=== PATIENT | female | born 1955 | race Caucasian/White ===

== ENCOUNTER → 2018-02-19 12:53 | Outpatient (CLI) | payer MEDICARE, SELFPAY ==
--- NOTE | 2018-02-19 13:01 | BD_ITS ---
STUDY: DUAL ENERGY X-RAY ABSORPTIOMETRY / DXA REASON FOR EXAM: Female, 63 years old. The patient is postmenopausal. Loss of height. TECHNIQUE: Bone Mineral Density (BMD) measurements of lumbar spine and bilateral hips were obtained. COMPARISON: None. FINDINGS: Lumbar Spine (L1-L4): g/cm2 (0.880) / T-score (-2.4) / Z-score (-0.8) Findings are suggestive of osteopenia with a moderate fracture risk. Left Femur Total: g/cm2 (0.840) / T-score (-1.3) / Z-score (-0.1) Left Femoral Neck: g/cm2 (0.923) / T-score (-0.8) / Z-score (0.6) Right Femur Total: g/cm2 (0.790) / T-score (-1.7) / Z-score (-0.5) Right Femoral Neck: g/cm2 (0.773) / T-score (-1.9) / Z-score (-0.4) BD/Dexa Bone Density Study IMPRESSION: The patient is considered osteopenic as outlined below according to World [employer] Organization (WHO) criteria with a moderate fracture risk. Reference Information: The T-score is the number of standard deviations above or below the standard which is normal for young adults at their peak bone mineral density. The World Health Organization (WHO) interprets the T-scores as follows: Above -1 Normal bone density Between -1 and -2.5 Osteopenia Equal to / or below -2.5 Osteoporosis As a practical clinical guideline, osteopenia may be graded as follows: Mild -1 through -1.5 Moderate -1.6 through -2.0 Severe -2.1 through -2.4 The Z-score is the number of standard deviations above or below age-matched controls. A Z-score of less than -1.5 would be considered abnormal. References: 1. NIH Osteoporosis and Related Bone Diseases http://www.osteo.org 2. International Society for Clinical Densitometry http://www.iscd.org 3. National Osteoporosis Foundation http://www.nof.org Electronically Signed: Gamal Carias MD at 15:38 EDT Tel [phone], Service support ,
== END ==
PROVIDERS: PCP Nurse Practitioner; Visit Provider Nurse Practitioner
DX: Z78.0 Asymptomatic menopausal state (principal)
CPT/HCPCS: 77080

== ENCOUNTER → 2018-04-17 11:13 | Outpatient (CLI) | payer MEDICARE, OTHER, SELFPAY ==
--- NOTE | 2018-04-17 11:17 | RAD_ITS ---
STUDY: X-RAY - PELVIS AND RIGHT HIP REASON FOR EXAM: Female, 63 years old. RT POSTERIOR HIP PAIN UPPER BUTTOCKS DOWN MIDDLE THIGH X MONTHS, THE PAIN MOVES TECHNIQUE: Radiological exam, hip, unilateral, with pelvis when performed; 2 or 3 views. COMPARISON: None. FINDINGS: There is a non-specific bowel gas pattern. Normal visualized soft tissue structures. Normal bilateral iliac wings, sacroiliac joints and visualized sacrum. Normal bilateral superior and inferior pubic rami. Normal pubic symphysis. Normal bilateral ischial tuberosities. There are osteoarthritic changes of the femoral head with marginal osteophyte formation. There is osteoarthritic spur formation of the acetabular rim. There is mild articular joint space narrowing of the hip. RAD/HIP, UNI W/ Pelvis 2-3 Views IMPRESSION: Degenerative findings of the hips. Electronically Signed: Stephen Tao MD at 16:49 EDT , Service support ,
== END ==
PROVIDERS: Family Provider Nurse Practitioner; PCP Nurse Practitioner; Visit Provider Nurse Practitioner
DX: M25.551 Pain in right hip (principal)
CPT/HCPCS: 73502

== ENCOUNTER → 2018-05-22 10:31 | Outpatient (CLI) | payer MEDICARE, OTHER, SELFPAY ==
--- NOTE | 2018-05-22 10:34 | BI_ITS ---
MAMMOGRAPHY - BILATERAL SCREENING REASON FOR EXAM: Female, 63 years old. Routine annual screening examination. PERTINENT HISTORY: Non-contributory. TECHNIQUE: Digital bilateral breast tavo (3D mammographic acquisition) in the CC and MLO projections. 2-D mediolateral oblique (MLO) and craniocaudad (CC) views of both breasts were obtained. CAD: Full Field Digital Mammography with Computer Added Detection was performed. COMPARISON: Comparison is made with prior study dated February 05, 2017 and November 25, 2014. FINDINGS: Breast Composition: The breasts are heterogeneously dense, which may obscure small masses. There are no dominant masses or suspicious calcifications. No other significant abnormalities are identified. There has been no significant change since the prior study. BI/SCREENING MAMM (CAD), BILAT IMPRESSION: Stable bilateral screening mammogram. Yearly follow-up mammogram recommended. (A) ASSESSMENT CATEGORY: BIRADS Category 1: Negative. A letter regarding these results will be sent to the patient by the facility within 30 days. Approximately 10% of breast cancers are not detected by mammography. A normal mammogram should not delay biopsy of a clinically suspicious abnormality. [id number] Electronically Signed: Gamal Carias MD at 14:24 EDT Tel [phone], Service support ,
== END ==
PROVIDERS: Family Provider Nurse Practitioner; PCP Nurse Practitioner; Visit Provider Nurse Practitioner
DX: Z12.31 Encounter for screening mammogram for malignant neoplasm of breast (principal)
CPT/HCPCS: 77063; 77067

== ENCOUNTER → 2018-12-18 | Outpatient (CLI) | payer MEDICARE, OTHER, SELFPAY ==
--- NOTE | 2018-12-18 13:49 | US_ITS ---
STUDY: ULTRASOUND OF THE FEMALE PELVIS - COMPLETE REASON FOR EXAM: Female, 63 years old. Postmenopausal bleeding. LMP: Postmenopausal. TECHNIQUE: Transabdominal and Transvaginal TECHNICAL QUALITY: Adequate. COMPARISON: None. FINDINGS: The uterus is anteverted and is in a midline position. The uterus measures 5.8 cm x 4.1 cm x 3.3 cm. Normal uterine cervix. The endometrium is slightly thickened and measures 3.5 mm in thickness, and is hyperechoic. There is no demonstrated endometrial mass. There is no demonstrated myometrial mass. I.U.D. - The patient does not have an I.U.D. The right ovary is non-visualized. The left ovary is non-visualized. There is no fluid in the cul-de-sac. The pre void volume of the bladder was 129 ml. Polycystic ovary disease: No. US/Pelvic (Non ) IMPRESSION: Mild thickening of the endometrium. Electronically Signed: Gamal Carias, at 15:37 EDT , Service support ,
--- NOTE | 2018-12-18 13:49 | US_ITS ---
STUDY: ULTRASOUND OF THE FEMALE PELVIS - COMPLETE REASON FOR EXAM: Female, 63 years old. Postmenopausal bleeding. LMP: Postmenopausal. TECHNIQUE: Transabdominal and Transvaginal TECHNICAL QUALITY: Adequate. COMPARISON: None. FINDINGS: The uterus is anteverted and is in a midline position. The uterus measures 5.8 cm x 4.1 cm x 3.3 cm. Normal uterine cervix. The endometrium is slightly thickened and measures 3.5 mm in thickness, and is hyperechoic. There is no demonstrated endometrial mass. There is no demonstrated myometrial mass. I.U.D. - The patient does not have an I.U.D. The right ovary is non-visualized. The left ovary is non-visualized. There is no fluid in the cul-de-sac. The pre void volume of the bladder was 129 ml. Polycystic ovary disease: No. US/Transvaginal Non- IMPRESSION: Mild thickening of the endometrium. Electronically Signed: Gamal Carias, at 15:37 EDT , Service support ,
== END | disposition home or self-care (01) ==
LOC: US 13:46
PROVIDERS: Family Provider Nurse Practitioner; PCP Nurse Practitioner; Referring Provider Urology; Visit Provider Urology
DX: N95.0 Postmenopausal bleeding (principal); R31.0 Gross hematuria
CPT/HCPCS: 76830; 76856

== ENCOUNTER → 2019-04-29 | Outpatient (CLI) | payer MEDICARE, OTHER, SELFPAY ==
[2019-02-24 15:46] VITALS: BMI 22.8
--- NOTE | 2019-04-29 10:14 | US_ITS ---
STUDY: RENAL ULTRASOUND - COMPLETE REASON FOR EXAM: Female, 64 years old. Gross hematuria TECHNIQUE: Ultrasound evaluation of the kidneys was performed with real-time and static ruiz-scale imaging. COMPARISON: None. FINDINGS: RIGHT KIDNEY: Normal location of the right kidney, which is normal in size. The right kidney measures 9.9 x 4.3 x 3.3 cm. There is a normal cortex of the right kidney. The renal cortex measures cm. There is no right renal mass or cyst. There are no right renal calculi. There is no right hydronephrosis. DISTAL RIGHT URETER: There is non-visualization of the distal right ureter. There is no demonstrated right ureterovesical junction calculus. There is a visualized right ureteral jet. LEFT KIDNEY: Normal location of the left kidney, which is normal in size. The left kidney measures 10.3 x 4.3 x 6.2 cm. There is a normal cortex of the left kidney. The renal cortex measures 1.5 cm. There is no left renal mass or cyst. There are no left renal calculi. There is no left hydronephrosis. DISTAL LEFT URETER: There is non-visualization of the distal left ureter. There is no demonstrated left ureterovesical junction calculus. There is a visualized left ureteral jet. BLADDER: The distended urinary bladder has a volume of 173.5 ml.. There is a normal wall thickness of the distended urinary bladder. There is no demonstrated mass within the urinary bladder. There are no demonstrated bladder calculi. US/Kidney and Bladder IMPRESSION: Normal ultrasound of the kidneys and urinary bladder. Electronically Signed: Enrico Navarrete MD at 22:26 EDT , Service support ,
== END | disposition home or self-care (01) ==
LOC: US 10:13
PROVIDERS: Family Provider Family Medicine; PCP Family Medicine; Referring Provider Urology; Visit Provider Urology
DX: R31.0 Gross hematuria (principal)
CPT/HCPCS: 76770

== ENCOUNTER → 2019-08-25 10:27 | Outpatient (CLI) | payer MEDICARE, OTHER, SELFPAY ==
[2019-03-20 14:50] VITALS: BMI 22.8
--- NOTE | 2019-08-25 10:30 | BI_ITS ---
MAMMOGRAPHY - BILATERAL SCREENING REASON FOR EXAM: Female, 64 years old. Routine annual screening examination. PERTINENT HISTORY: Non-contributory. TECHNIQUE: Digital bilateral breast brianna (3D mammographic acquisition) in the CC and MLO projections. 2-D mediolateral oblique (MLO) and craniocaudad (CC) views of both breasts were obtained. CAD: Full Field Digital Mammography with Computer Added Detection was performed. COMPARISON: Comparison is made with prior study dated May 22, 2018 and August 08, 2016. FINDINGS: Breast Composition: The breasts are heterogeneously dense, which may obscure small masses. There are no dominant masses or suspicious calcifications. No other significant abnormalities are identified. There has been no significant change since the prior study. BI/SCREEN MAMM (CAD) W/BRIANNA BILAT IMPRESSION: Stable bilateral screening mammogram. Yearly follow-up mammogram recommended. (A) ASSESSMENT CATEGORY: BIRADS Category 1: Negative. A letter regarding these results will be sent to the patient by the facility within 30 days. Approximately 10% of breast cancers are not detected by mammography. A normal mammogram should not delay biopsy of a clinically suspicious abnormality. [id number] Electronically Signed: Gamal Carias, at 12:21 EST , Service support ,
== END ==
PROVIDERS: Family Provider Family Medicine; PCP Family Medicine; Referring Provider Obstetrics & Gynecology; Visit Provider Obstetrics & Gynecology
DX: Z12.31 Encounter for screening mammogram for malignant neoplasm of breast (principal)
CPT/HCPCS: 77063; 77067

== ENCOUNTER 2020-06-01 05:26 | Day surgery (SDC) | payer MEDICARE, OTHER, SELFPAY ==
[2020-01-05 15:18] VITALS: BMI 22.8
--- NOTE | 2020-05-24 13:22 | EKG12_ITS ---
Test Reason : PRE OP Blood Pressure : / mmHG Vent. Rate : 061 BPM Atrial Rate : 061 BPM P-R Int : 174 ms QRS Dur : 084 ms QT Int : 410 ms P-R-T Axes : 064 063 054 degrees QTc Int : 412 ms Normal sinus rhythm Normal ECG Confirmed by JOSE M LAUGHLIN, TEO ([id number]), newspaper photo editor DAVID RICE ([id number]) on 05/25/2020 9:14:01 AM Referred By: Cherri Trevino Confirmed By:TEO SALGUERO MD
[2020-05-24 13:35] LABS: Hemoglobin 12.4 g/dL (12.0-15.0); Mean Corpuscular Hgb 27.3 pg (27.0-32.0); Mean Corpuscular Volume 88.1 fL (81-99); Mean Platelet Vol. 9.4 fl (6.2-12.0); Platelet Count 259 K/mm3 (150-450); RBC Distribution Width CV 13.9 % (11.6-14.6); RBC Distribution Width SD 45.2 fl (35.1-43.9); Red Blood Count 4.54 M/mm3 (4.2-5.4); White Blood Count 5.9 K/mm3 (4.4-11.0)
[2020-05-24 14:01] VITALS: BMI 22.8
[2020-05-24 14:13] LABS: Magnesium 1.8 mg/dL (1.6-2.6); Thyroid Stim Hormone (TSH) 1.45 uIU/mL (0.358-3.74)
[2020-06-01] VITALS (14 sets, daily range): BP systolic 105–151; BP diastolic 61–86; PULSE 61–81; RESP 14–18; TEMP 36–37.2; O2SAT 95–100; BMI 23.1
[2020-06-01] MEDS: Lactated Ringers 1,000 ML 40 ML IV (06:22)
[2020-06-01] MEDS: Acetaminophen 500 MG Tablet 1000 MG PO ×3 (06:34→23:51)
[2020-06-01] MEDS: Celecoxib 200 MG Capsule 400 MG PO (06:35)
[2020-06-01] MEDS: dexAMETHasone 10 MG/ML Vial 8 MG IV (06:36)
[2020-06-01] MEDS: Scopolamine 1mg/72hr Patch 1 PATCH TRANSDERM. (06:36)
[2020-06-01] MEDS: Enoxaparin 40 MG/0.4 ML Syringe SC (06:36)
[2020-06-01] MEDS: Gabapentin 600 MG Tablet PO (06:36)
[2020-06-01] MEDS: Estrogens,Conj. 1 Tube 1 DOSE (07:04)
[2020-06-01 07:06] LABS: Bedside Glucose 100 mg/dL (70-110)
--- NOTE | 2020-06-01 07:29 | OP.PCM_ITS ---
Problem List (1) Pessary maintenance Status: Acute Comment: size 2 cube, failed ring with support, gellhorn, and doughnut. plan monthly removal in office prior to surgery (2) Incomplete uterovaginal prolapse Status: Acute Comment: grade III cytocele/rectocele. recommend TVH BS combo case with urogyn. s/p urogyn evaluation. patient prefers SDS Report of Operation Date of Procedure: 06/01/20 Pre-Operative Diagnosis: pelvic organ prolapse Surgery/Procedure Performed:: tvh Description of Surgical Findings:: nl uterus tubes ovaries [employer] scout: Jenna Espinal Type of Anesthesia:: General Specimen's removed: uterus Drains: [place] Estimated Blood Loss (mL): 50 Fluids Replaced: crystalloid Description of Procedure: Patient was taken to the operating room and was placed under general anesthesia was prepped and draped in normal sterile fashion in the dorsal lithotomy position. Preoperative antibiotics and SCDs and [place] catheter was placed inside the bladder. Weighted speculum was placed in the vagina and the anterior and posterior lip of the cervix was grasped with 2 Nasir clamps and circumferentially injected with dilute vasopressin. A circumferential incision was made with a scalpel and the posterior cul-de-sac was entered into sharply and a longneck speculum was placed. The anterior cul-de-sac was also dissected down and entered into sharply and the uterosacral ligaments were clamped cut and suture ligated bilaterally followed by the cardinal ligaments which were Clamped cut and suture ligated bilaterally with 0 Monocryl. The uterus serially descended and progressive bites were taken bilaterally up to the level of the utero-ovarian ligament bilaterally which was clamped transected and double ligated with 0 Monocryl suture and 0 Vicryl free tie. Bilateral fallopian tubes and ovaries were well visualized and noted be within normal limits. Significantly lateral and superior to the immediate visual operative field. Risk of removal due to inadequate exposure through vaginal access,, the decision to abort bilateral oophorectomy and salpingectomy was made. Patient had been consented preoperatively about this possibility and agreed. Excellent hemostasis was noted. Posterior peritoneum and the vagina were closed with [id number] 0 Vicryl pop offs including the posterior and anterior peritoneum in the reapproximation. Excellent hemostasis was noted. All instruments removed from the vagina clear urine was noted at the end of the procedure and see dr sargent's note for additional operative info. Grafts/Implants Used: none - Complications none - Admit VTE Documentation VTE Present on Admission: No VTE Mechan Device Prophylaxis: SCD's Multi Select Codes - Urinary/Genital Urinary/Genital CPT Codes: 39438 TVH <250 gr uterus
--- NOTE | 2020-06-01 07:29 | PCM.HPOB.BLA ---
- Problem List (1) Pessary maintenance Status: Acute Comment: size 2 cube, failed ring with support, gellhorn, and doughnut. plan monthly removal in office prior to surgery (2) Incomplete uterovaginal prolapse Status: Acute Comment: grade III cytocele/rectocele. recommend TVH BS combo case with urogyn. s/p urogyn evaluation. patient prefers SDS History and Physical Date of Admission: 06/01/20 Intake Vital Signs 05/24/20 Height 5 ft 3 in 05/24/20 Weight: 129 lb 5 oz 05/24/20 BMI 22.8 05/24/20 BP 112/80 Intake Visit Reasons: pre op Chief Complaint: pre op TVH BSO rosetta espinoo General [employer] Required: No Is patient in pain?: No Allergies amoxicillin Allergy (Verified 05/24/20 14:02) Hives Penicillins Adverse Reaction (Unknown, Verified 05/24/20 14:02) unknown codeine Adverse Reaction (Verified 05/24/20 14:02) Vomiting Medications zolpidem 5 mg tablet 5 mg PO QHS PRN 12/12/18 [History Confirmed 05/24/20] prasterone (dhea) 25 mg capsule 25 mg PO DAILY 12/24/19 [History Confirmed 05/24/20] progesterone micronized 100 mg capsule 100 mg PO QAM 12/24/19 [History Confirmed 05/24/20] C-Estriol 1 mg VAGINAL .2TIMESWEEELY 05/24/20 [History Confirmed 05/24/20] Calcium Carbonate/Vitamin D3 [Calcium 250+D Tablet] 1 ea PO DAILY 05/24/20 [History Confirmed 05/24/20] Cholecalciferol (VIT D3) [Vitamin D] 1,000 unit PO DAILY 05/24/20 [History Confirmed 05/24/20] Selenium 100 mcg PO DAILY 05/24/20 [History Confirmed 05/24/20] Testosterone 2 gm TD DAILY 05/24/20 [History Confirmed 05/24/20] Thyroid,Pork [Nature-Throid] 30 mg PO DAILY 05/24/20 [History Confirmed 05/24/20] Vitamin B Complex 1 ea PO DAILY 05/24/20 [History Confirmed 05/24/20] Zinc 50 mg PO DAILY 05/24/20 [History Confirmed 05/24/20] multivitamin,[id number]-[id number] 1 tab PO DAILY 05/24/20 [History] Is last menstrual period known: No Post menopausal: Yes Patient : No : No PFSH Medical History Adrenal disorder (Acute) Anemia (Acute) Anxiety (Acute) Hormone deficiency (Acute) Hypercholesteremia (Acute) Nasal tumor (Acute) Osteoarthritis (Acute) Osteopenia (Acute) Seasonal affective disorder (Acute) Skin cancer (Acute) Vitamin D deficiency (Acute) Surgical History History of ankle surgery (Acute) Family History Mother Lung cancer Heart disease Father Bone cancer Brother Throat cancer Daughter HORMONE PROBLEMS Social History (Updated 05/24/20 @ 14:[address] 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 she is having a vaginal hysterectomy combo case with pelvic reconstruction. Female Reproductive History Menopausal Symptoms: No hot flashes, No night sweats, No difficulty concentrating, No change in libido Pregancy History 2 Elective abortions Hx Para 2 Spontaneous abortions Hx # Term Pregnancies Ectopic pregnancies Hx # Pregnancies Multiple births # of living children 2 Past Pregnancies Del. Date Name GA/Weeks Outcome Route Bth Weight Gen Labor Lgth Anesthesia Del Locatn Provider FOB Unknown 1978 Col[facility] live - full term Unknown 1998 Mirela live - full term ROS Const Constitutional: Denies fatigue, fever(s), headache(s), increased appetite, poor appetite, night sweats, weight gain or weight loss Cardio Card: Denies chest pain Resp Resp: Denies cough or dyspnea GI GI: Reports as per HPI; denies abdominal pain, constipation, nausea or vomiting : Reports as per HPI; denies difficulty urinating, painful urination, hot flashes, nipple discharge, urinary frequency, urinary incontinence, urinary hesitancy, urinary urgency, vaginal discharge, vaginal dryness, vaginal odor or vaginal itching Skin Skin/Breast: Denies change in hair, breast lump, breast pain, breast skin changes or nipple discharge Psych Psych: Denies change in sex drive or difficulty concentrating Exam Const General: cooperative, healthy appearing, comfortable, no acute distress, well developed Nutritional Appearance: average body habitus Orientation: alert HENMT Head: normal to inspection, normocephalic Neck Neck: normal visual inspection, trachea midline Thyroid: thyroid normal Resp Effort & Inspection: normal respiratory effort GI Inspection: normal to inspection, non-distended Palpation: soft, no hepatosplenomegaly General: bladder normal to palpation External Female Exam: normal external appearance, normal appearance of the urethra Urethra: normal appearance of the urethra Speculum Exam - Vagina: normal appearance of the vagina, normal vaginal discharge Speculum Exam - Cervix: normal appearance of the cervix, nontender Bimanual Exam- Vagina & Uterus: bladder normal to palpation, No cervical tenderness Bimanual Exam- Adnexa, other: normal adnexae, adnexae mobile, no adnexal masses, rectocele, cystocele, vaginal apex descent Pelvic Support: cystocele, rectocele, vaginal apex descent Skin General: no rashes or lesions noted Assessment & Plan Problems 1. Incomplete uterovaginal prolapse N81.2 grade III cytocele/rectocele. recommend TVH BS combo case with urogyn. s/p urogyn evaluation. patient prefers SDS 2. Pessary maintenance Z46.89 size 2 cube, failed ring with support, gellhorn, and doughnut. plan monthly removal in office prior to surgery Plan After discussing the patient's diagnosis and treatment plan options, patient wishes to proceed with surgical management. I have discussed with the patient the risks, benefits, and alternatives of the procedure which include but are not limited to risks of anesthesia, bleeding, infection, possible damage to bowel, bladder, or surrounding vasculature which could lead to additional surgery to evaluate any complications. Patient agrees to procedure and wishes to proceed. ACOG/uptodate references given for additional information regarding procedure. Coding Level of Care Code No Charge Diagnoses Incomplete uterovaginal prolapse N81.2 Pessary maintenance Z46.89 UPDATE- I have seen the patient and performed any clinically relevant updates to the history and physical exam. Cherri Trevino MD
--- NOTE | 2020-06-01 07:30 | HYST_PTH ---
PATIENT: AHMET SHANE LOC: [facility] [place] U#:[id number] AGE/SX: 65/F ROOM: RE06/01/[address]: Dr. Cherri Trevino MD : 1955 BED: DIS: 06/02/2020 SPEC #: [id number] RECD: 06/01/20 12:19 STATUS: CHAIM REDarin #: [id number] KOLBY: 06/01/20 07:[address]: Cherri Trevino DEPT: SURGICAL PATHOLOGY RECD BY: Bakari Cruz ENTERED: 06/01/20 12:28 SP TYPE: HYSTERECT OTHR DR: MD Dr. Celina Hightower III, MD Tissues: Uterus, NOS Procedures: Surgery Specimen Level V HEADER OPERATION: ERAS, vaginal hysterectomy PRE-OP DIAGNOSIS: Incomplete uterovaginal prolapse; cystocele/rectocele TISSUE SUBMITTED: Uterus MICROSCOPIC DIAGNOSIS Uterus, hysterectomy: Cervix - squamous metaplasia, nabothian cyst and chronic inflammation. Endometrium - weakly proliferative endometrium with focal cystic change. Myometrium - focal superficial adenomyosis. AM:robert 06/02/20 MICROSCOPIC DESCRIPTION Slides are reviewed. GROSS DESCRIPTION Received in fixative is one container labeled with the patient's name and designated uterus. The specimen consists of a hysterectomy specimen consisting of uterus with cervix weighing 56 gm and measuring 7 x 5 x 3 cm. The serosal surface is zepeda, glistening. The ectocervical mucosa is unremarkable. The external os is slit-like in contour. The endocervical canal measures 2.5 cm in length and the endocervical mucosa is zepeda, glistening and unremarkable. The triangular endometrial cavity measures 3.5 cm in length and 2.5 cm in width. The endometrium is zepeda, glistening without any mass lesion and measures <01 cm in thickness. Sections of the uterine wall do not reveal any mass lesion and measures 1.5 cm in thickness. [employer]in[employer] sections are submitted in six cassettes as follows: 1??anterior cervix, 2 - posterior cervix, 3 & 4 - anterior uterine wall, 5 & 6 - posterior uterine wall. / MECHE:robert 06/01/20 TC:5 CPT: 71850
--- NOTE | 2020-06-01 08:13 | OP.PCM_ITS ---
Problem List (1) Incomplete uterovaginal prolapse Status: Acute Comment: grade III cytocele/rectocele. recommend TVH BS combo case with urogyn. s/p urogyn evaluation. patient prefers SDS Report of Operation Date of Procedure: 06/01/20 Pre-Operative Diagnosis: incomplete uterovaginal prolapse Post-Operative Diagnosis: same Surgery/Procedure Performed:: Anterior repair with dermis, bilateral sacrospinous ligament fixation, cystoscopy with bilateral ureteral catheterization Type of Anesthesia:: General Estimated Blood Loss (mL): 20 cc Description of Procedure: The patient is a 65-year-old female with pelvic organ prolapse who presents for definitive surgical intervention after using a pessary for some time. Informed consent was obtained including a discussion of Covid. She was evaluated in the office with cystoscopy and urodynamics. Patient was taken to the operating room and placed on the operating room table. Anesthesia monitored the head, neck, airway, IV access and vital signs throughout the case. Once anesthesia was appropriately administered, the patient was placed in dorsal lithotomy and Trendelenburg position and was prepped and draped in usual sterile fashion. A 16 Vietnamese Aldana catheter was inserted and the bladder was emptied. The hysterectomy and cuff closure was performed by Dr. Gorge Mei. Following closure of the cuff, the case was turned to ak. The anterior vaginal wall was isolated and injected submucosally with vasopressin for hemostatic control and hydrostatic dissection. A vertical midline incision approximately 2 cm in length was made in the vaginal mucosa. Sharp and blunt dissection was performed bilaterally until the ischial spines were freed from surrounding tissues and the sacrospinous ligaments were isolated. Monodek was passed using the Capio through each sacrospinous ligament. The suture was then brought through the dermis and out through the vaginal apex. This was done bilaterally. The dermis was then secured to the apex in the midline and bilaterally at the white lines and at the bladder neck area in the midline. The vaginal mucosa was then closed using running interlocking 2-0 Vicryl. The sacrospinous ligament sutures were then tied into position. After the reduction of the vault prolapse and cystocele, the remaining rectocele was very minimal and very apically oriented. The decision was made to proceed with cystoscopic evaluation. The Aldana catheter was removed and the cystoscope was inserted through the urethra under direct visualization into the urinary bladder. There were no abnormalities within the urinary bladder including mucosal lesions, injury or foreign body. A 5 Vietnamese whistle- tip catheter was easily inserted through each ureteral orifice and advanced 25 cm. There was no obstruction or blood from either side. The cystoscope was removed and the Aldana catheter was replaced. Vaginal packing and estrogen cream were inserted. The patient was then awakened and taken to the recovery room in good condition. There were no complications during this procedure. Grafts/Implants Used: Dermis - Complications None - Admit VTE Documentation VTE Present on Admission: Yes VTE Mechan Device Prophylaxis: SCD's VTE Pharm Prophylaxis ordered?: Yes
[2020-06-01] MEDS: Lactated Ringers 1,000 ML 70 ML IV ×2 (09:30→14:02)
[2020-06-01] MEDS: Vasopressin 20 UNITS/ML Vial (09:30)
[2020-06-01] MEDS: Ondansetron 4 MG/2 ML Vial IV (10:13)
[2020-06-01] MEDS: Ondansetron ODT 4 MG Tablet PO (13:16)
[2020-06-01] MEDS: Ketorolac 30 MG/ML Syringe IV ×2 (17:00→23:51)
[2020-06-01] MEDS: cycloBENZAPRine HCl 10 MG Tablet PO (21:24)
[2020-06-01] MEDS: Docusate Sodium 100 MG Capsule PO (21:24)
[2020-06-02 03:04] VITALS: BP 126/61; PULSE 61; RESP 16; TEMP 37.2; O2SAT 96
[2020-06-02] MEDS: Ondansetron ODT 4 MG Tablet PO (03:17)
[2020-06-02] MEDS: Lactated Ringers 1,000 ML 70 ML IV (03:18)
[2020-06-02] MEDS: Ketorolac 30 MG/ML Syringe IV ×2 (05:37→12:12)
[2020-06-02] MEDS: Thyroid 15 MG Tablet 30 MG PO (05:37)
[2020-06-02] MEDS: Acetaminophen 500 MG Tablet 1000 MG PO ×2 (05:38→12:11)
[2020-06-02 06:19] LABS: Hematocrit 31.7 % (37-47); Hemoglobin 10.1 g/dL (12.0-15.0); Mean Corp Hgb Conc 31.9 g/dL (32-36); Mean Corpuscular Hgb 27.6 pg (27.0-32.0); Mean Corpuscular Volume 86.6 fL (81-99); Mean Platelet Vol. 9.6 fl (6.2-12.0); Platelet Count 241 K/mm3 (150-450); RBC Distribution Width CV 14.1 % (11.6-14.6); RBC Distribution Width SD 44.8 fl (35.1-43.9); Red Blood Count 3.66 M/mm3 (4.2-5.4); White Blood Count 7.9 K/mm3 (4.4-11.0)
[2020-06-02 07:20] VITALS: O2SAT 95
--- NOTE | 2020-06-02 08:03 | PCM.PN.BLA ---
Progress Note Comfortable in bed. Vitals are good. Urine clear, abdomen soft, SCD's in place. Aldana and packing removed. Trial of void and home today. STROKE Vital Signs/Narrative: Vital Signs Pulse Ox 06/02/20 07:20 95
--- NOTE | 2020-06-02 08:04 | DCINST_ITS ---
Discharge Diet: No Restrictions Discharge Activity: May Not Drive, May Shower, - - No tub bathing, no hot tubs, no swimming. No exercise, no strenuous activity. No lifting over 5 pounds. No sexual activity, nothing per vagina except continue estrogen cream. Okay to shower May resume sexual activity in: 8 weeks Call your doctor if your incision/area has: Continuous Slow Oozing, Sudden Increased Bleeding, Increased Pain/ Swelling, Foul Smelling Discharge, Swelling at the incision site Call your doctor if you observe: Fever of 101 or Higher, Inability to urinate, Inability to have a bowel movement Allergies/Adverse Reactions: Allergies amoxicillin Allergy (Verified 06/01/20 06:08) Hives Penicillins Adverse Reaction (Unknown, Verified 06/01/20 06:08) unknown codeine Adverse Reaction (Verified 06/01/20 06:08) Vomiting Medications to take at Discharge zolpidem 5 mg tablet 5 mg PO QHS PRN 12/12/18 prasterone (dhea) 25 mg capsule 25 mg PO DAILY 12/24/19 progesterone micronized 100 mg capsule 100 mg PO QAM 12/24/19 C-Estriol 1 mg VAGINAL .2TIMESWEEELY 05/24/20 Calcium Carbonate/Vitamin D3 [Calcium 250+D Tablet] 1 ea PO DAILY 05/24/20 Cholecalciferol (VIT D3) [Vitamin D] 1,000 unit PO DAILY 05/24/20 Selenium 100 mcg PO DAILY 05/24/20 Testosterone 2 gm TD DAILY 05/24/20 Thyroid,Pork [Nature-Throid] 30 mg PO DAILY 05/24/20 Vitamin B Complex 1 ea PO DAILY 05/24/20 Zinc 50 mg PO DAILY 05/24/20 multivitamin,[id number] 1 tab PO DAILY 05/24/20 Primary Care Physician: Tyler Kaplan III, MD [Primary Care Provider] - Test Results: Test results from this visit will be discussed in further detail at your follow- up appointment, if applicable. Please Follow Up With: Celina Craft MD When: call office for appt Proposed Discharge Date: 06/02/20
--- NOTE | 2020-06-02 08:29 | PN.OBGYN_ITS ---
Patient Problems: Active and Suspected Problems (Last Reviewed 05/24/20 @ 14:03 by Kaela Jimenez) Pessary maintenance (Acute) size 2 cube, failed ring with support, gellhorn, and doughnut. plan monthly removal in office prior to surgery Incomplete uterovaginal prolapse (Acute) grade III cytocele/rectocele. recommend TVH BS combo case with urogyn. s/p urogyn evaluation. patient prefers SDS Subjective: Patient seen and examined this am. Reports doing well. Having some discomfort with [place] in place, but pain controlled otherwise. Tolerating PO fluids. Has not attempted eating. Denies nausea and vomiting. Passing small amounts of gas. Objective: Laboratory Tests 3 06/02/20 06/01/20 05/24/20 Range/Units 05:54 06:28 13:30 WBC 7.9 (4.4-11.0) K/mm3 RBC 3.66 L (4.2-5.4) M/mm3 Hgb 10.1 L (12.0-15.0) g/dL Hct 31.7 L (37-47) % MCV 86.6 (81-99) fL MCH 27.6 (27.0-32.0) pg MCHC 31.9 L (32-36) g/dL RDW Std Deviation 44.8 H (35.1-43.9) fl RDW Coeff of Sergei 14.1 (11.6-14.6) % Plt Count 241 (150-450) K/mm3 MPV 9.6 (6.2-12.0) fl Magnesium (1.6-2.6) mg/dL TSH (0.358-3.74) uIU/mL COVID-19 (DANIEL) Not Detected (Not Detected) POC Glucose 100 (70-110) mg/dL Blood Type Antibody Screen 05/24/20 05/24/20 05/24/20 Range/Units 13:11 13:11 13:10 WBC 5.9 (4.4-11.0) K/mm3 RBC 4.54 (4.2-5.4) M/mm3 Hgb 12.4 (12.0-15.0) g/dL Hct 40.0 (37-47) % MCV 88.1 (81-99) fL MCH 27.3 (27.0-32.0) pg MCHC 31.0 L (32-36) g/dL RDW Std Deviation 45.2 H (35.1-43.9) fl RDW Coeff of Sergei 13.9 (11.6-14.6) % Plt Count 259 (150-450) K/mm3 MPV 9.4 (6.2-12.0) fl Magnesium 1.8 (1.6-2.6) mg/dL TSH 1.45 (0.358-3.74) uIU/mL COVID-19 (DANIEL) (Not Detected) POC Glucose (70-110) mg/dL Blood Type A POSITIVE Antibody Screen NEGATIVE - Physical Exam Vitals/I&O's: Vital Signs Temp Pulse Resp BP Pulse Ox 98.9 F 61 16 126/61 H 95 06/02/20 03:04 06/02/20 03:04 06/02/20 03:04 06/02/20 03:04 06/02/20 07:20 Oxygen Flow Rate (L/min) 6 Oxygen Delivery Method Room Air Weight: 130 lb 4.691 oz Body Mass Index (BMI) 23.1 Intake and Output for Last 24 Hours 05/31/20 06/01/20 06/02/20 23:59 23:59 23:59 Intake Total 1783.33 / 1783.33 928.67 / 928.67 Output Total 700 / 950 1350 / 1350 Balance 1083.33 / 833.33 -421.33 / -421.33 General: Alert, Oriented x3, Cooperative, No apparent distress, Well developed, Well nourished HEENT: Atraumatic, PERRLA, EOMI Oral: Moist Mucosa Neck: Supple Lungs: Clear to auscultation, Normal air movement Cardiovascular: Regular rate, Regular Rhythm Abdomen: Bowel Sounds Present, Soft, Non Tender, Non-Distended Extremities: No edema Neurological: Cranial nerves II-XII grossly intact, Neuro grossly intact Psych/Mental Status: Normal Affect, Appropriate Laboratory Results 06/02/20 05:54: WBC 7.9, RBC 3.66 L, Hgb 10.1 L, Hct 31.7 L, MCV 86.6, MCH 27.6, MCHC 31.9 L, RDW Std Deviation 44.8 H, RDW Coeff of Sergei 14.1, Plt Count 241, MPV 9.6 Current Medications Acetaminophen (Acetaminophen 500 Mg Tablet) 1,000 mg PO Q6 [facility] Last Admin: 06/02/20 05:38 Dose: 1,000 mg Documented by: Hydrocodone Bitart/Acetaminophen (Hydrocodone Bitartrate/Apap 5/325 Tablet) 1 tablet PO Q4H PRN PRN PRN Reason: Pain Score 1-10 Cyclobenzaprine HCl (Cyclobenzaprine Hcl 10 Mg Tablet) 10 mg PO TID PRN PRN PRN Reason: Pain Score 1-10 Last Admin: 06/01/20 21:24 Dose: 10 mg Documented by: Docusate Sodium (Docusate Sodium 100 Mg Capsule) 100 mg PO BID [facility] Last Admin: 06/01/20 21:24 Dose: 100 mg Documented by: Enoxaparin Sodium (Enoxaparin 40 Mg/0.4 Ml Syringe) 40 mg SC DAILY [facility] Sodium Chloride () 250 mls @ 15 mls/hr IV .[id number] PRN PRN Reason: Saline Flush Sodium Chloride () 250 mls @ 15 mls/hr IV .[id number] PRN PRN Reason: Additional IVPB Infusion Lactated Ringer's () 1,000 mls @ 70 mls/hr IV .[id number] [facility] Stop: 06/02/20 12:41 Last Admin: 06/02/20 03:18 Dose: 70 mls/hr Documented by: Ketorolac Tromethamine (Ketorolac 30 Mg/Ml Syringe) 30 mg IV Q6 [facility] Stop: 06/03/20 00:01 Last Admin: 06/02/20 05:37 Dose: 30 mg Documented by: Magnesium Chloride (Magnesium Chloride 64 Mg Delay Rel.Tablet) 128 mg PO DAILY PRN PRN PRN Reason: Constipation Nutritional Formula (Lactose Free) (Ensure Enlive 120 Ml Liquid) 120 ml PO TIDCM [facility] Last Admin: 06/01/20 16:59 Dose: Not Given Documented by: Ondansetron HCl (Ondansetron Odt 4 Mg Tablet) 4 mg PO Q6H PRN PRN PRN Reason: NAUSEA Last Admin: 06/02/20 03:17 Dose: 4 mg Documented by: Simethicone (Simethicone 80 Mg Tablet) 80 mg PO TID PRN PRN PRN Reason: bloating Last Admin: 06/02/20 03:42 Dose: 80 mg Documented by: Sodium Chloride (0.9% Saline Lock 10 Ml Syringe) 10 - 40 ml IV UD PRN PRN Reason: SALINE FLUSH Thyroid (Thyroid 15 Mg Tablet) 30 mg PO DAILY@0600 EPI Last Admin: 06/02/20 05:37 Dose: 30 mg Documented by: Zolpidem Tartrate (Zolpidem Tartrate 5 Mg Tablet) 5 mg PO QHS PRN PRN PRN Reason: SLEEP Medical Necessity - Tobacco Use Smoking Status: Former smoker Tobacco Use: Non-smoker Assessment/Plan All Active Problems (Last Reviewed 05/24/20 @ 14:03 by Kaela Jimenez) Pessary maintenance (Acute) Incomplete uterovaginal prolapse (Acute) 65yo F POD#1 s/p TVH and pelvic floor reconstruction 1. Post-op state - Patient doing well - [place] out this am - Tolerating PO fluids. Encouraged PO intake - Pain controlled - Vital signs stable - Anticipate DC to home later today.
[2020-06-02 09:03] VITALS: BP 108/61; PULSE 62; RESP 18; TEMP 36.7; O2SAT 98
[2020-06-02] MEDS: Docusate Sodium 100 MG Capsule PO (09:09)
[2020-06-02] MEDS: Enoxaparin 40 MG/0.4 ML Syringe SC (09:09)
[2020-06-02 14:24] VITALS: BP 114/64; PULSE 66; RESP 16; TEMP 36.8; O2SAT 98
== END 2020-06-02 14:36 | disposition home or self-care (01) ==
LOC: SDC 05:26 → AC 05:26 → MS3 16:21
PROVIDERS: Anesthesiology; Urology; PCP Family Medicine; Referring Provider Obstetrics & Gynecology; Visit Provider Obstetrics & Gynecology
PROC: (CPT 58260; principal; 2020-06-01 07:10)
PROC: (CPT 57260; 2020-06-01 07:10)
DX: N81.2 Incomplete uterovaginal prolapse (principal); N87.9 Dysplasia of cervix uteri, unspecified; N88.8 Other specified noninflammatory disorders of cervix uteri; N72 Inflammatory disease of cervix uteri; N80.0 Endometriosis of uterus; F41.9 Anxiety disorder, unspecified; M19.90 Unspecified osteoarthritis, unspecified site; Z87.891 Personal history of nicotine dependence; N39.46 Mixed incontinence; N95.2 Postmenopausal atrophic vaginitis; E06.9 Thyroiditis, unspecified; Z20.828 Contact with and (suspected) exposure to other viral communicable diseases; Z79.899 Other long term (current) drug therapy
CPT/HCPCS: 52000; 57240; 57282; 58260; 36415; 82962; 83735; 84443; 85027; 86850; 86900; 86901; 87635; 88305; 88307; 93005; 99251; C9803; J7120; C1758; G0463; J2405; J3475; U0003

== ENCOUNTER 2020-06-10 09:36 | Day surgery (SDC) | payer MEDICARE, OTHER, SELFPAY ==
[2020-06-01 11:26] VITALS: BMI 23.1
[2020-06-10] VITALS (8 sets, daily range): BP systolic 113–137; BP diastolic 73–81; PULSE 66–93; RESP 16–18; TEMP 36.7–37.4; O2SAT 96–100; BMI 22.1
[2020-06-10] MEDS: Lactated Ringers 1,000 ML 100 ML IV ×2 (10:25→12:00)
--- NOTE | 2020-06-10 11:34 | OP.PCM_ITS ---
Problem List (1) Vaginal bleeding Status: Acute Report of Operation Date of Procedure: 06/10/20 Pre-Operative Diagnosis: vaginal bleeding after anterior repair Post-Operative Diagnosis: dehiscence anterior vaginal wall Surgery/Procedure Performed:: closure anterior vaginal wall Type of Anesthesia:: MAC Specimen's removed: tissue for culture aerobic, anaerobic, fungal Description of Procedure: The patient is a 65-year-old female who underwent a hysterectomy with anterior repair with dermis bilateral sacrospinous ligament fixation last week. She struggled with constipation over the weekend, had significant bearing down. She began having increased vaginal bleeding approximately 3 days ago. She was seen in the office yesterday and there was an area of raw vaginal wall at the distal aspect of the anterior vaginal wall closure. Vaginal packing was placed and the patient continued to bleed overnight. She was brought in today for evaluation and repair under anesthesia. Informed consent was obtained. Patient was taken to the operating room and placed on the operating room table. Anesthesia monitored the head, neck, airway, IV access and vital signs throughout the case. Once anesthesia was appropriate ministered the patient was placed into dorsal lithotomy position in Trendelenburg. A Aldana catheter was inserted and clear yellow urine approximately 150 cc was drained. The anterior vaginal wall was irrigated and it revealed an opening in 2 separate locations 1 towards the urethra and the other towards the apex. The dehiscence closer to the urethra was approximately 1 cm in length, the one closer to the apex approximately 1.5 cm in length. These areas were irrigated the edge of the tissue that did not appear healthy was removed and sent for culture. There is a small amount of hematoma, old and organized pressing against the vaginal wall. The anterior vaginal wall was irrigated and carefully closed with interrupted 2- 0 Vicryl suture. Hemostasis was achieved. The entire anterior wall repair was reinforced with interrupted suture. The patient was then awakened and taken to the recovery room in good condition. There were no complications during the procedure. Grafts/Implants Used: none - Complications none - Admit VTE Documentation VTE Present on Admission: Yes VTE Mechan Device Prophylaxis: SCD's VTE Pharm Prophylaxis ordered?: No Reason prophylaxis not ordered:: Treatment Not Indicated
--- NOTE | 2020-06-10 11:38 | DCINST_ITS ---
Discharge Diet: No Restrictions Discharge Activity: May Not Drive, May Shower May resume sexual activity in: 8 weeks Additional Activity Instructions:: continue postoperative restrictions, no exercise, no lifting over 5 pounds, no swimming, tub bathing, hot tubs, no sexual activity Call your doctor if your incision/area has: Continuous Slow Oozing, Sudden Increased Bleeding, Increased Pain/ Swelling, Increased Redness, Foul Smelling Discharge Call your doctor if you observe: Fever of 101 or Higher, Inability to urinate, Inability to have a bowel movement Additional Instructions: miralax 1 cap twice a day as needed for constipation Allergies/Adverse Reactions: Allergies amoxicillin Allergy (Verified 06/10/20 09:55) Hives Penicillins Adverse Reaction (Unknown, Verified 06/10/20 09:55) unknown codeine Adverse Reaction (Verified 06/10/20 09:55) Vomiting Medications to take at Discharge zolpidem 5 mg tablet 5 mg PO QHS PRN 12/12/18 prasterone (dhea) 25 mg capsule 25 mg PO DAILY 12/24/19 progesterone micronized 100 mg capsule 100 mg PO QAM 12/24/19 C-Estriol 1 mg VAGINAL .2TIMESWEEELY 05/24/20 Calcium Carbonate/Vitamin D3 [Calcium 250-D Tablet] 1 ea PO DAILY 05/24/20 Cholecalciferol (VIT D3) [Vitamin D3] 1,000 unit PO DAILY 05/24/20 Selenium 100 mcg PO DAILY 05/24/20 Testosterone 2 gm TD DAILY 05/24/20 Thyroid,Pork [Nature-Throid] 30 mg PO DAILY 05/24/20 Vitamin B Complex 1 ea PO DAILY 05/24/20 Zinc 50 mg PO DAILY 05/24/20 multivitamin,[id number]-lbuw-[id number] 1 tab PO DAILY 05/24/20 ALPRAZolam 0.4 mg PO BID PRN 06/10/20 Oxycodone HCl/Acetaminophen [Percocet 5/325] 1 tab PO Q8H PRN PRN 7 Days #10 tab 06/10/20 The following prescriptions were given: Oxycodone HCl/Acetaminophen [Percocet 5/325] 1 tab PO Q8H PRN PRN 7 Days #10 tab PRN Reason: Pain Transmission Status: Received by [facility] Primary Care Physician: Tyler Kaplan III, MD [Primary Care Provider] - Test Results: Test results from this visit will be discussed in further detail at your follow- up appointment, if applicable. Please Follow Up With: Celina Craft MD When: call office for appt Proposed Discharge Date: 06/10/20
[2020-06-10 12:43] LABS: Hemoglobin 9.7 g/dL (12.0-15.0); NRBC Flagged by Analyzer 0 % (0-5)
[2020-06-10 12:45] LABS: Absolute Lymphocyte Count 0.68 X10^3/uL (0.83-4.51); Absolute Neutrophil Count 4.2 X10^3/uL (2.0-7.7); Basophil# 0.04 X10^3/uL; Basophil% 0.7 % (0-1); Eosinophil# 0.04 X10^3/uL; Eosinophils% 0.7 % (0-5); Hematocrit 30.3 % (37-47); Lymphocyte # 0.68 X10^3/ul (4.0); Lymphocyte % 12.5 % (19-41); Mean Corpuscular Hgb 27.7 pg (27.0-32.0); Mean Corpuscular Volume 86.6 fL (81-99); Mean Platelet Vol. 9.4 fl (6.2-12.0); Monocyte# 0.45 X10^3/uL; Monocyte% 8.3 % (0-10); Neutrophil # 4.21 X10^3/uL (2.7-7.7); Neutrophil % 77.2 % (47-70); Platelet Count 284 K/mm3 (150-450); RBC Distribution Width CV 13.6 % (11.6-14.6); RBC Distribution Width SD 42.6 fl (35.1-43.9); White Blood Count 5.5 K/mm3 (4.4-11.0)
[2020-06-10 12:57] LABS: Anion Gap 7 (5-15); BUN 15 mg/dL (7-18); BUN/Creat Ratio 26.9 RATIO (10-20); Calcium,Total 8.4 mg/dL (8.5-10.1); Chloride 110 mmol/L (98-107); Creatinine, Serum 0.56 mg/dL (0.55-1.02); EST Glomerular Filtration Rate 115 mL/min (>60); Est Glom Filt Rate - Afr Amer 140 mL/min (>60); Estimated Creatinine Clearance 45.16 ml/min; Glucose 96 mg/dL (74-106); Potassium 3.8 mmol/L (3.5-5.1); Sodium Level 143 mmol/L (136-145)
--- NOTE | 2020-06-11 12:36 | PCM.HP.STD ---
Problem List (1) Vaginal bleeding Status: Acute History of Present Illness Date of Admission: 06/11/20 Chief Complaint: Vaginal bleeding after hysterectomy and pelvic floor reconstruction The patient is a 65 year old F [who developed vaginal bleeding approximately 3 days ago. She had a hysterectomy and pelvic floor reconstruction last week. She was seen in the office yesterday and one small area of denuded vaginal mucosa was identified approximately 5 mm in diameter in the anterior vaginal wall at the end of the incision closest to the bladder neck. The incision remained intact. Vaginal packing was placed and the patient was to follow-up the next day. She called with bleeding throughout the night and the decision was made to take her to the operating room for revision of this area for bleeding. She had no fever, chills, nausea or vomiting. She did have some lower abdominal cramping and constipation. No issues with urination. Past Medical History Medical History: Medical History (Last Reviewed 06/11/20 @ 12:[address] 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 Osteoarthritis M19.90 Osteopenia M85.80 Seasonal affective disorder F33.8 Skin cancer C44.90 Vitamin D deficiency E55.9 Allergies amoxicillin Allergy (Verified 06/10/20 09:55) Hives Penicillins Adverse Reaction (Unknown, Verified 06/10/20 09:55) unknown codeine Adverse Reaction (Verified 06/10/20 09:55) Vomiting Home Medications: Ambulatory Orders Medication Instructions Recorded zolpidem 5 mg tablet 5 mg PO QHS PRN 12/12/18 prasterone (dhea) 25 mg capsule 25 mg PO DAILY 12/24/19 progesterone micronized 100 mg 100 mg PO QAM 12/24/19 capsule C-Estriol 1 mg VAGINAL .2TIMESWEEELY 05/24/20 Calcium Carbonate/Vitamin D3 1 ea PO DAILY 05/24/20 [Calcium 250-D Tablet] Cholecalciferol (VIT D3) [Vitamin 1,000 unit PO DAILY 05/24/20 D3] Selenium 100 mcg PO DAILY 05/24/20 Testosterone 2 gm TD DAILY 05/24/20 Thyroid,Pork [Nature-Throid] 30 mg PO DAILY 05/24/20 Vitamin B Complex 1 ea PO DAILY 05/24/20 Zinc 50 mg PO DAILY 05/24/20 multivitamin,pe-yyor-hjowbijn 1 tab PO DAILY 05/24/20 ALPRAZolam 0.4 mg PO BID PRN 06/10/20 Lorazepam [Ativan] 0.5 mg PO BID PRN 10 Days #20 tab 06/10/20 Oxycodone HCl/Acetaminophen 1 tab PO Q8H PRN PRN 7 Days #10 tab 06/10/20 [Percocet 5/325] Smz/Tmp Ds [Bactrim Ds] 1 tab PO BID 5 Days #10 tab 06/10/20 Surgical History: Surgical History (Last Reviewed 06/11/20 @ 12:[address] Celina Craft MD) History of ankle surgery Z98.890 PLATE AND PINS Smoking Status: Former smoker Review of Systems Constitutional: Denies: Anorexia, Chills, Fever Eyes: Denies: Vision Change HEENT: Denies: Difficulty Swallowing, Visual Changes Cardiovascular: Denies: Chest Pain, Chest Pressure Respiratory: Denies: Cough, Shortness of Breath Gastrointestinal: Reports: Abdominal Pain, Constipation. Denies: Nausea, Melena, Vomiting Genitourinary: Denies: Hematuria, Incontinence Gynecological: Reports: Vaginal bleeding Musculoskeletal: Denies: Muscle pain Skin: Denies: Wounds Neurological: Denies: Difficulty swallowing Psychiatric: Reports: Anxiety VTE Information - Inpt Only VTE Present on Admission: Yes VTE Mechan Device Prophylaxis: SCD's VTE Pharm Prophylaxis ordered?: No Reason prophylaxis not ordered:: Treatment Not Indicated Patient Problems: Active and Suspected Problems (Last Reviewed 05/24/20 @ 14:03 by Kaela Jimenez) Vaginal bleeding (Acute) - Physical Exam Vitals/I&O's: Vital Signs Temp Pulse Resp BP Pulse Ox 99.2 F H 93 18 137/81 H 97 06/10/20 13:50 06/10/20 13:50 06/10/20 13:50 06/10/20 13:50 06/10/20 13:50 Oxygen Delivery Method Room Air Weight: 56.7 kg Body Mass Index (BMI) 22.1 Intake and Output for Last 24 Hours 06/09/20 06/10/20 06/11/20 23:59 23:59 23:59 Intake Total 1400 / 1400 Output Total 160 / 160 Balance 1240 / 1240 General: Alert, Oriented x3, Cooperative HEENT: Atraumatic, Normocephalic Neck: Supple, Trachea Midline Lungs: Normal air movement Cardiovascular: Regular rate, Regular Rhythm Abdomen: Soft, Non Tender, Non-Distended Extremities: No clubbing, No cyanosis Skin: No rashes Musculoskeletal: No Muscle Wasting Neurological: Cranial nerves II-XII grossly intact, Neuro grossly intact Psych/Mental Status: Normal Affect, Anxious, Alert and oriented to time, place, person, mood and affect Microbiology Past 72 Hours 06/10/20 Unknown Wound - Other Gram Stain - Final 06/10/20 Unknown Wound - Other Wound Culture - Preliminary Mixed Gram Positive Organisms 06/10/20 10:20 Mucosa - Nose - Final Laboratory Results 06/10/20 : WBC 5.5, RBC 3.50 L, Hgb 9.7 L, Hct 30.3 L, MCV 86.6, MCH 27.7, MCHC 32.0, RDW Std Deviation 42.6, RDW Coeff of Sergei 13.6, Plt Count 284, MPV 9.4, Immature Gran % (Auto) 0.600, Neut % (Auto) 77.2 H, Lymph % (Auto) 12.5 L, [place] % (Auto) 8.3, Eos % (Auto) 0.7, Baso % (Auto) 0.7, Absolute Neuts (auto) 4.2, Absolute Lymphs (auto) 0.68 L, Nucleated RBC % 0 06/10/20 : Sodium 143, Potassium 3.8, Chloride 110 H, Carbon Dioxide 26.0, Anion Gap 7, BUN 15, Creatinine 0.56, Estim Creat Clear Calc 45.16, Est GFR (MDRD) Af Amer 140, Est GFR (MDRD) Non-Af 115, BUN/Creatinine Ratio 26.9 H, Glucose 96, Calcium 8.4 L Assessment/Plan All Active Problems (Last Reviewed 05/24/20 @ 14:03 by Kaela Jimenez) Vaginal bleeding (Acute) Pessary maintenance (Acute) Incomplete uterovaginal prolapse (Acute) To the operating room for revision of anterior repair secondary to postoperative bleeding Consent was obtained including a discussion of COVID-19. Procedure Criteria Procedure Type: Elective COVID Risk Discussion: The surgeon/proceduralist and patient have discussed in detail the risk of exposure to and/or potential harm posed by the COVID-19 virus with having a surgery/procedure at this time versus the risk of delaying the surgery/procedure. It is not possible to know either the risk of delaying the surgery or procedure or chance of getting an infection with perfect accuracy, but a joint decision was made between the patient and the surgeon/proceduralist to proceed at this time with the scheduled surgery/procedure as indicated on the consent form.
== END 2020-06-10 13:52 | disposition home or self-care (01) ==
LOC: SDC 09:39 → AC 09:39
PROVIDERS: PCP Family Medicine; Visit Provider Urology
PROC: (CPT 57260; principal; 2020-06-10 11:15)
DX: T81.31XA Disruption of external operation (surgical) wound, not elsewhere classified, initial encounter (principal); M19.90 Unspecified osteoarthritis, unspecified site; F41.9 Anxiety disorder, unspecified; E06.9 Thyroiditis, unspecified; Z79.899 Other long term (current) drug therapy; Z87.891 Personal history of nicotine dependence
CPT/HCPCS: 00940; 12020; 80048; 85025; 87015; 87070; 87075; 87077; 87102; 87116; 87186; 87205; 87206; 87426; J7120; J2405

== ENCOUNTER → 2020-06-14 09:56 | Outpatient (CLI) | payer MEDICARE, OTHER, SELFPAY ==
[2020-06-10 10:07] VITALS: BMI 22.1
[2020-06-14 13:05] LABS: ALB/GLOB Ratio 0.9 RATIO (0.9-2.4); AST(SGOT) 10 U/L (15-37); Alanine Aminotransfer ALT/SGPT 20 U/L (13-56); Albumin, Serum 3.5 g/dL (3.2-5.0); Alkaline Phosphatase 93 U/L (45-117); Anion Gap 5 (5-15); BUN 16 mg/dL (7-18); BUN/Creat Ratio 15.7 RATIO (10-20); Calcium,Total 9.4 mg/dL (8.5-10.1); Chloride 106 mmol/L (98-107); Creatinine, Serum 1.02 mg/dL (0.55-1.02); EST Glomerular Filtration Rate 57 mL/min (>60); Est Glom Filt Rate - Afr Amer 69 mL/min (>60); Globulin 4.1 g/dL (2.2-4.2); Glucose 87 mg/dL (74-106); Potassium 4.2 mmol/L (3.5-5.1); Protein, Total 7.6 g/dL (6.4-8.2); Sodium Level 139 mmol/L (136-145)
== END ==
PROVIDERS: PCP Family Medicine; Referring Provider Urology; Visit Provider Urology
DX: N93.9 Abnormal uterine and vaginal bleeding, unspecified (principal)
CPT/HCPCS: 36415; 80053

== ENCOUNTER → 2020-09-16 11:34 | Outpatient (CLI) | payer MEDICARE, OTHER, SELFPAY ==
[2020-06-14 15:06] VITALS: BMI 22.1
--- NOTE | 2020-09-16 11:36 | BI_ITS ---
MAMMOGRAPHY - BILATERAL SCREENING REASON FOR EXAM: Female, 65 years old. Routine annual screening examination. PERTINENT HISTORY: Non-contributory. TECHNIQUE: Digital bilateral breast brianna (3D mammographic acquisition) in the CC and MLO projections. 2-D mediolateral oblique (MLO) and craniocaudad (CC) views of both breasts were obtained. CAD: Full Field Digital Mammography with Computer Added Detection was performed. COMPARISON: Comparison is made with prior study dated 02/23/2020 and 05/22/2018. FINDINGS: Breast Composition: The breasts are heterogeneously dense, which may obscure small masses. There are no dominant masses or suspicious calcifications. No other significant abnormalities are identified. There has been no significant change since the prior study. BI/SCRN MAMM (CAD)W/BRIANNA BILAT IMPRESSION: Stable bilateral screening mammogram. Yearly follow-up mammogram recommended. (A) ASSESSMENT CATEGORY: BIRADS Category 1: Negative. A letter regarding these results will be sent to the patient by the facility within 30 days. Approximately 10% of breast cancers are not detected by mammography. A normal mammogram should not delay biopsy of a clinically suspicious abnormality. [id number] Electronically Signed: Gamal Carias MD at 9:31 EST , Service support ,
== END ==
PROVIDERS: PCP Family Medicine; Referring Provider Obstetrics & Gynecology; Visit Provider Obstetrics & Gynecology
DX: Z12.31 Encounter for screening mammogram for malignant neoplasm of breast (principal)
CPT/HCPCS: 77063; 77067

== ENCOUNTER 2020-10-12 11:13 | Outpatient (RCR) | payer MEDICARE, OTHER, SELFPAY ==
[2020-06-14 15:06] VITALS: BMI 22.1
[2020-10-12] MEDS: COVID-19 VACC, MRNA(PFIZER)/PF 30 MCG/0.3 ML SYRINGE IM (17:46)
[2020-11-02] MEDS: COVID-19 VACC, MRNA(PFIZER)/PF 30 MCG/0.3 ML SYRINGE IM (17:27)
== END 2021-01-11 23:59 ==
LOC: IMMUN 11:13
PROVIDERS: PCP Family Medicine; Visit Provider Family Medicine
DX: Z23 Encounter for immunization (principal)
CPT/HCPCS: 0001A; 0002A; 91300

== ENCOUNTER → 2022-07-14 | Outpatient (CLI) | payer MEDICARE, OTHER, SELFPAY ==
--- NOTE | 2022-07-14 10:36 | BI_ITS ---
MAMMOGRAPHY - BILATERAL SCREENING REASON FOR EXAM: Female, 67 years old. Routine annual screening examination. PERTINENT HISTORY: Non-contributory. TECHNIQUE: Digital bilateral breast brianna (3D mammographic acquisition) in the CC and MLO projections. 2-D mediolateral oblique (MLO) and craniocaudad (CC) views of both breasts were obtained. CAD: Full Field Digital Mammography with Computer Added Detection was performed. COMPARISON: Comparison is made with prior study of 09/16/2020 and 08/25/2019. FINDINGS: Breast Composition: The breasts are heterogeneously dense, which may obscure small masses. There are no dominant masses or suspicious calcifications. No other significant abnormalities are identified. There has been no significant change since the prior study. BI/SCRN MAMM (CAD)W/BRIANNA BILAT IMPRESSION: Stable bilateral screening mammogram. Yearly follow-up mammogram recommended. (A) ASSESSMENT CATEGORY: BIRADS Category 1: Negative. A letter regarding these results will be sent to the patient by the facility within 30 days. Approximately 10% of breast cancers are not detected by mammography. A normal mammogram should not delay biopsy of a clinically suspicious abnormality. [id number] Electronically Signed: Gamal Carias MD at 12:19 EST ,
== END | disposition home or self-care (01) ==
LOC: OPBI 10:35
PROVIDERS: PCP Internal Medicine; Referring Provider Nurse Practitioner Women's Health; Visit Provider Nurse Practitioner Women's Health
DX: Z12.31 Encounter for screening mammogram for malignant neoplasm of breast (principal)
CPT/HCPCS: 77063; 77067

== ENCOUNTER 2023-06-08 07:50 | Day surgery (SDC) | payer MEDICARE, OTHER, SELFPAY ==
[2023-06-08 08:07] VITALS: BP 131/83; PULSE 78; RESP 16; TEMP 36.6; O2SAT 100; BMI 22.2
--- NOTE | 2023-06-08 09:20 | MASS_PTH ---
PATIENT: AHMET SHANE [place] [facility] [id number] AGE/SX: 68/F ROOM: RE06/08/[address]: Dr. Radha Beltran MD : 1955 BED: DIS: 06/08/2023 SPEC #: [id number] RECD: 06/08/23 11:05 STATUS: CHAIM ARGUELLO #: [id number] KOLBY: 06/08/23 09:[address]: Radha Beltran DEPT: SURGICAL PATHOLOGY RECD BY: Yocasta Ramirez ENTERED: 06/08/23 11:30 SP TYPE: Mass OTHR DR: Dr. 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 SJ: 06/11/2023 MICROSCOPIC DESCRIPTION Slides are reviewed. GROSS DESCRIPTION Received in fixative is one container labeled with the patient's name and designated subcutaneous mass anterior chest. The specimen consists of a piece of skin with underlying tissue measuring 1.0 x 1.0 cm and up to 1.2 cm in thickness. The specimen is inked and reveals a cyst measuring 0.5 cm in greatest dimension. The entire is submitted in one cassette. /MECHE:robert 06/08/2023 TC:5 CPT: 29640
--- NOTE | 2023-06-08 09:22 | HP.PCM_ITS ---
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 She is aware because of this history, that recurrence is possible despite today's excision. [facility] Medical History Adrenal disorder Anemia Anxiety Bone fracture Chronic neck pain Chronic pain in shoulder Chronic thoracic back pain Excessive and redundant skin and subcutaneous tissue Former smoker Hormone deficiency Hypercholesteremia Intertrigo Macromastia Nasal tumor Osteoarthritis Osteopenia Personal history of skin cancer Platysmal band of neck Rectus diastasis of lower abdomen Seasonal affective disorder Skin cancer Skin striae Vitamin D deficiency Home Medications prasterone (dhea) 25 mg capsule (DHEA) 25 mg PO DAILY 12/24/19 [History Last Taken Unknown] progesterone micronized 100 mg capsule 100 mg PO QAM 12/24/19 [History Last Taken Unknown] C-Estriol 1 mg vaginal .2TIMESWEEELY 05/24/20 [History Last Taken Unknown] calcium carbonate 250 mg-vitamin D3 3.125 mcg (125 unit) tablet 1 ea PO DAILY 05/24/20 [History Last Taken Unknown] testosterone 1.62 % (40.5 mg/2.5 gram) transdermal gel packet 2 g transdermal DAILY 05/24/20 [History Last Taken Unknown] biotin 500 mcg capsule 1 mg PO DAILY 05/20/21 [History Last Taken Unknown] cholecalciferol (vitamin D3) 25 mcg (1,000 unit) tablet 1,000 unit PO DAILY 01/11/23 [History Last Taken Unknown] thyroid (pork) 60 mg tablet (CLAIM BENEFIT SPECIALIST Thyroid) 60 mg PO DAILY 03/14/23 [History Last Taken Unknown] zinc 50 mg tablet 50 mg PO .qod 03/14/23 [History Last Taken Unknown] Allergy/AdvReac Type Severity Reaction Status Date / Time amoxicillin Allergy Hives Verified 06/08/23 08:05 Penicillins AdvReac Unknown unknown Verified 06/08/23 08:05 codeine AdvReac Vomiting Verified 06/08/23 08:05 Family History Mother Lung cancer Heart disease HORMONE PROBLEMS Father Bone cancer Brother Throat cancer CVA (cerebral vascular accident) Daughter HORMONE PROBLEMS Surgical History History of ankle surgery History of bladder repair surgery History of hysterectomy History of neck surgery Social History Smoking Status: Former smoker alcohol intake: current details: social 1 glass a month substance use type: does not use caffeine: Yes what type of physical activity do you participate in: walking seatbelt use: always do you feel safe at home: Yes additional social history: 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 Rarely takes aspirin Rarely takes Ibuprofen Vital Signs Vital Signs Vital Signs: 06/08/23 08:07 06/08/23 08:07 Temperature 97.8 F Temperature Source Temporal Pulse Rate 78 Respiratory Rate 16 Respiratory Pattern Normal Blood Pressure 131/83 H Blood Pressure Mean 99 Blood Pressure Source Monitor Blood Pressure Position Semi-Fowlers Blood Pressure Location Left Arm Pulse Ox 100 Oxygen Delivery Method Room Air Weight Weight: 125 lb 10.616 oz Body Mass Index (BMI) 22.2 Physical Exam Const alert, oriented x3, no apparent distress, average body habitus and well nourished General Appearance: cooperative and well developed Orientation / Consciousness: oriented to person, oriented to place and oriented to time HEENT head/scalp atraumatic, external ears normal and external nose normal Head and Scalp: normal to inspection, normocephalic, atraumatic and abrasion Face and Sinus: normal facial exam and face symmetric Nose: external nose normal External Ear: external ears normal External Auditory Canal: EAC's normal Mouth: lips normal Eyes PERRL, EOMs intact bilaterally and conjunctivae normal General Eye: normal appearance of both eyes Periorbital: periorbital findings normal Eyelid: eyelids normal Conjunctiva: conjunctiva normal Pupil: PERRL Neck full ROM Lymph Lymphatic: no lymphadenopathy noted Chest inspection of chest normal Chest Narrative: subcutaeious nodule of anterior chest wall. Breast/Axilla Palpation: no axillary lymphadenopathy Resp normal respiratory effort, normal air movement and clear to auscultation bilaterally Auscultation: clear to auscultation bilaterally Cardio regular rate, regular rhythm, S1 normal heart sound, S2 normal heart sound and no murmurs Rate: regular rate Rhythm: regular rhythm GI soft to palpation and non-tender Extremity normal to inspection and full ROM General Extremity: normal exam except as noted Skin General Skin Exam: turgor normal Neuro oriented x3, CN's II-XII intact bilaterally, moves all extremities, no focal motor deficits and no sensory deficits noted Sensorium / Orientation: awake, alert, oriented to person, oriented to place and oriented to time Speech: speech normal Gait (Neuro): normal gait Psych mental status grossly normal Attention / Concentration: concentration grossly intact Memory / Cognition: memory grossly intact Assessment & Plan Assessment/Plan (1) 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
[2023-06-08] MEDS: Lidocaine 1% /Epi 1:100 9 ML, Sodium Bicarbonate 1 MEQ OPERA.SITE (09:50)
[2023-06-08 09:52] VITALS: BP 151/76; BP 155/75; O2SAT 100; O2SAT 99
--- NOTE | 2023-06-08 10:18 | DCINST_ITS ---
Discharge Instructions Diet Discharge Diet: No restrictions Dressing / Incision Additional Dressing/Incision Instructions:: May shower over the area, but do not scrub. If the dressing falls off or is removed because of irritation, you may shower over the area and dress with a bandaid daily. Take the oral antibiotic 2 x daily. Follow Up Care Please Follow Up With: Radha Beltran MD When: in 2 weeks Test Results: Test results from this visit will be discussed in further detail at your follow- up appointment, if applicable. Discharge Plan Admission Attending Provider: Radha Beltran Primary Care Provider: Katie Wang Discharge Orders/Prescriptions Prescriptions: New sulfamethoxazole-trimethoprim [Bactrim] 400-80 mg tablet 1 tab PO BID 5 Days Qty: 10 0RF No Action prasterone (dhea) [DHEA] 25 mg capsule 25 mg PO DAILY progesterone micronized 100 mg capsule 100 mg PO QAM Rx Instructions: off 7 days; repeat cycle biotin 500 mcg capsule 1 mg PO DAILY cholecalciferol (vitamin D3) 25 mcg (1,000 unit) tablet 1,000 unit PO DAILY thyroid (pork) [STEAM GENERATING POWER[employer]ANT MECH[employer]IC Thyroid] 60 mg tablet 60 mg PO DAILY Patient Comments: take 1 tablet by mouth once daily calcium carbonate-vitamin D3 1 EACH tablet 1 ea PO DAILY testosterone 2.5 GM gel in packet 2 g transdermal DAILY C-Estriol 1 mg VAGINAL .2TIMESWEEELY zinc 50 mg tablet 50 mg PO .qod Referrals / Follow Up: Katie Wang DO [Primary Care Provider] - Disposition Disposition (needs filled in before D/C Order can be placed): Home, Self Care
[2023-06-08 10:20] VITALS: BP 131/83; BP 136/74; PULSE 65; RESP 16; O2SAT 98
--- NOTE | 2023-06-08 10:22 | PCM.OPRPT ---
Problems Associated Problem List Diagnoses (1) Neoplasm of uncertain behavior of connective and other soft tissue: Report of Operation Date of Procedure: 06/08/23 Pre-Operative Diagnosis: Neoplasm uncertain behavior subcutaneous tissue chest Post-Operative Diagnosis: Same Surgery/Procedure Performed:: Excision subcutaneous mass anterior chest wall (2.5 cm) Surgeon: Radha Beltran Type of Anesthesia: Local Special Medications: buffered lidocaine with epinephrine Specimen's removed: Above subcutaneous mass Estimated Blood Loss (mL): Minimal Description of Procedure: The patient is marked in the preop holding area. Informed consent is obtained. She is aware of the potential for scar tissue in this area. Patient is brought to the operating room and placed on the operating room table in the supine position. The anterior chest is prepped and draped in the usual sterile fashion. 1% Xylocaine with epinephrine buffered with sodium bicarb is injected in the periphery of the mass. Following this, an elliptical incision is made over top of the mass and carried down through the subcutaneous tissue encompassing the mass. Hemostasis is controlled with cautery. The mass is then passed off the operative field to be sent to pathology. Hemostasis is controlled with cautery. The wound is then closed in layers using a Monocryl suture in a [id number] fashion for the subcutaneous tissue and dermis. Skin edges were approximated with running subcuticular Monocryl suture. Further reinforcement the closure was done with 2 simple interrupted Prolene sutures. Dermabond Steri-Strips and a Tegaderm were placed on the site. She tolerated the procedure well was taken to the recovery area in an awake and stable condition. Needle and sponge counts are correct. Complications None Admit VTE Documentation VTE Mechan Device Prophylaxis: None Reason prophylaxis not ordered:: Treatment Not Indicated
== END 2023-06-08 10:51 | disposition home or self-care (01) ==
LOC: SDC 07:52 → AC 07:53
PROVIDERS: PCP Internal Medicine; Referring Provider Plastic Surgery; Visit Provider Plastic Surgery
PROC: (CPT 11403; principal; 2023-06-08 09:10)
DX: L72.0 Epidermal cyst (principal); E78.00 Pure hypercholesterolemia, unspecified; Z87.891 Personal history of nicotine dependence; Z85.828 Personal history of other malignant neoplasm of skin
CPT/HCPCS: 11403; 88305

== ENCOUNTER → 2023-09-26 | Outpatient (CLI) | payer MEDICARE, OTHER, SELFPAY ==
--- NOTE | 2023-09-26 10:47 | BI_ITS ---
MAMMOGRAPHY - BILATERAL SCREENING REASON FOR EXAM: Female, 68 years old. Routine annual screening examination. PERTINENT HISTORY: Non-contributory. TECHNIQUE: Digital bilateral breast brianna (3D mammographic acquisition) in the CC and MLO projections. 2-D mediolateral oblique (MLO) and craniocaudad (CC) views of both breasts were obtained. CAD: Full Field Digital Mammography with Computer Added Detection was performed. COMPARISON: Comparison is made with prior study dated July 14, 2022 and September 16, 2020. FINDINGS: Breast Composition: The breasts are heterogeneously dense, which may obscure small masses. There are no dominant masses or suspicious calcifications. No other significant abnormalities are identified. There has been no significant change since the prior study. BI/SCRN MAMM (CAD)W/BRIANNA BILAT IMPRESSION: Stable bilateral screening mammogram. Yearly follow-up mammogram recommended. (A) ASSESSMENT CATEGORY: BIRADS Category 1: Negative. A letter regarding these results will be sent to the patient by the facility within 30 days. Approximately 10% of breast cancers are not detected by mammography. A normal mammogram should not delay biopsy of a clinically suspicious abnormality. [id number] Electronically Signed: Gamal Carias MD at 11:28 EST ,
== END | disposition home or self-care (01) ==
LOC: OPBI 10:47
PROVIDERS: PCP Internal Medicine; Referring Provider Internal Medicine; Visit Provider Internal Medicine
DX: Z12.31 Encounter for screening mammogram for malignant neoplasm of breast (principal)
CPT/HCPCS: 77063; 77067

== ENCOUNTER 2024-08-27 11:30 | Outpatient (RCR) | payer MEDICARE, OTHER, SELFPAY ==
--- NOTE | 2024-06-12 07:53 | HP.PTEVAL_ITS ---
Patient's Visit Information Visit Information Visit Information: AHMET BRYANT is a 69 year old F referred to Physical Therapy by Dr. Jolene Uriarte DC with a diagnosis of Cervical spine pain, stiffness. Date of Evaluation: 06/03/24 Physical Therapist: Kwaku Euceda DPT Visit Plan Frequency: 2x /Week Duration: 6 Weeks Plan: 1) cervical spine joint mobility, including SNAGs and manual PAs and UPAs 2) B hip joint mobs into PAs and distraction with IR/ER motions. Subjective Subjective: Pt. is here today for her initial evaluation with diagnosis of cervical pain and stiffness. She also reports having B hip stiffness and is doing to have referring doctor send over script for this as well. Pt. reports having increasing stiffness in B hips and cervical spine over the past few years. Pt. denies sharp pain, but has been noticing increased difficulty with looking over her shoulders and with getting on a horse due to her hip hypomobi lity. She reports being very active with both stretching and with exercises. Pt. is sleeping well without limitations. No radicular symptoms noted. Pt. is hopeful to increase her mobility in order to complete all gym and recreational activities without limitations. Pain Cervical spine: Pain Intensity (Out of 10): 1 Pain Intensity Range: 0 and 3 B hips: Pain Intensity (Out of 10): 1 Pain Intensity Range: 0 and 2 Objective Objective: POSTURE: Pt. has decent posture in stance. Normal shoulder heights and normal iliac crest heights. PALPATION: Pt. has some mild muscle tension through B UT and B levator scap. PAs to cervical spine hypomobility noted throughout. Pt. has no pain with palpation throughout B hip flexors, or TFL. NEURO: normal throughout. ROM: CERVICAL SPINE: flexion nil loss NE, ext mod loss, rotation mod loss bilat, SB mod loss bilat. B hips: ext 10deg bilat tightness noted, IR 15deg bilat tightness, ER 45deg stiffness noted. flexion 110deg bilat mild increase NW, HS length is normal IT band normal. MMT: 5/5 throughout BUEs adn B LEs. GAIT: pt. has a fairly normal gait pattern without increase in symptoms. Balance/Special Test Scores Oswestry Neck Score: 10 Goals Goal 1:: LTG: Pt. to be I with HEP. Goal Time Frame: 4-6 Weeks Goal 2:: LTG: Pt. to have increased cervical ROM by 25% in all directions. Goal Time Frame: 4-6 Weeks Goal 3:: LTG: pt. to have B hip ROM increased by 25% in all directions. Goal Time Frame: 4-6 Weeks Goal 4:: LTG: pt. to complete all gym exercises without limitations. Goal Time Frame: 4-6 Weeks Goal 5:: LTG: pt. to be able to ride a horse without issues. Goal Time Frame: 4-6 Weeks Rehabilitation Potential Physical Therapy Diagnosis: Pt. has signs and symptoms consistent with cervical spine and B hip hypomobility. Pt. would benefit from PT to work on improving her ROM in order to get back to all recreational activities without limitation. Rehabilitation Potential: Good Anticipated Interventions Patient/Client Instruction: Educate patient on: Condition, Plan of Care, Risk Factors and Benefits of Fitness Program For the Purpose of:: To facilitate caregiver knowledge, To improve self management, To prevent re-injury, To improve ability to perform tasks related to life management and To improve tolerance to ADL's Therapeutic Exercise to Include: Strength training, Power training, Flexibilty training, Passive ROM and Active ROM For the Purpose of:: To decrease pain, To increase ROM, To improve nutrient delivery to tissue, To increase oxygenation perfusion, To improve health of tissue, To decrease soft tissue restriction and To increase flexibility/ROM Manual Therapy Techniques to Include: Mobilization and Passive ROM For the Purpose of:: To decrease pain, To increase ROM, To improve health of tissue and To increase flexibility/ROM Text: Thank you for the opportunity to evaluate your patient. For Medicare and Medicare HMO plans, please review the plan of care and approve it. It will need to be FAXED BACK to us at [phone] for Medicare purposes. For Medicare only, by signing this I certify the plan of care. Please let me know if there are questions or concerns regarding this plan of care. Physician Signature: Date:
== END 2024-08-27 19:00 | disposition home or self-care (01) ==
LOC: PT 11:30
PROVIDERS: PCP Internal Medicine; Referring Provider Chiropractor; Visit Provider Chiropractor
DX: M54.2 Cervicalgia (principal); M25.69 Stiffness of other specified joint, not elsewhere classified
CPT/HCPCS: 97161

== ENCOUNTER → 2024-11-13 | Outpatient (CLI) | payer MEDICARE, OTHER, SELFPAY ==
--- NOTE | 2024-11-13 10:38 | BD_ITS ---
PROCEDURE: DEXA BONE DENSITY STUDY 11/13/2024 REASON FOR EXAM: Screening F, age 69 y/o . TECHNIQUE: DXA scan of the lumbar spine and left hip, using Hologic. REFERENCE LINKS: ISCD Adult Positions COMPARISON: February 19, 2018 FINDINGS: BMD and T-SCORES Lumbar spine: 0.811 g/cm2, T-Score -2.1 L1 through L4 Change from prior: -3.1% Left femoral neck: 0.693 g/cm2, T-Score -1.4 Femoral neck comparison data not recommended for monitoring change. Left total hip: 0.735 g/cm2, T-Score -1.7 Change from prior: -5.6% Right femoral neck: 0.624 g/cm2, T-Score -2.0 Femoral neck comparison data not recommended for monitoring change. Right total hip: 0.723 g/cm2, T-Score -1.8 Change from prior: -0.9% BD/Dexa Bone Density Study IMPRESSION: OSTEOPENIA. Recommend follow-up as clinically warranted. Reading Location: [id number]
--- NOTE | 2024-11-13 11:00 | BI_ITS ---
EXAM: SCRN MAMM (CAD)W/BRIANNA BILAT 11/13/2024 CLINICAL HISTORY: F, Age 69 y/o , SCREENING MAMMOGRAM TECHNIQUE: Bilateral screening digital breast tomosynthesis with 2D and 3D images. Computer aided detection. COMPARISON: Prior exam(s) dated 09/26/2023, 07/14/2022. FINDINGS: TISSUE DENSITY: The breast tissue is composed of scattered area of fibroglandular density. Bilateral Breast Mammographic Findings: No significant masses, calcifications or other abnormalities are identified. BI/SCRN MAMM (CAD)W/BRIANNA BILAT IMPRESSION: Right Breast: BIRADS 1 NEGATIVE. Left Breast: BIRADS 1 NEGATIVE. OVERALL FINAL ASSESSMENT: BIRADS 1 NEGATIVE. RECOMMENDATION: Routine annual follow-up in 1 Year A letter with findings and recommendations will be mailed to the patient. Reading Location: [id number]
== END | disposition home or self-care (01) ==
LOC: OPBD 10:29
PROVIDERS: PCP Internal Medicine; Referring Provider Obstetrics & Gynecology; Visit Provider Obstetrics & Gynecology
DX: Z12.31 Encounter for screening mammogram for malignant neoplasm of breast (principal); M85.89 Other specified disorders of bone density and structure, multiple sites
CPT/HCPCS: 77063; 77067; 77080